=== PATIENT | female | born 1955 | race Caucasian/White ===

== ENCOUNTER 2020-09-14 16:26 | Emergency (ER) | payer MEDICARE, MEDICAID, SELFPAY ==
[2020-09-14] VITALS (28 sets, daily range): BP systolic 115–179; BP diastolic 79–120; PULSE 57–100; RESP 14–27; TEMP 36.3; O2SAT 94–100
--- NOTE | 2020-09-14 16:30 | RT.EKG_ITS ---
APPROVED REPORT Exam: Resting ECG Patient Location: E HR:77 bpm ECG Measurements Heart Rate 77 AXIS MO 163 P 36 QRSd 78 QRS 37 QT 376 T 25 QTc [address] elev anterior, ST dep inferior
--- NOTE | 2020-09-14 16:45 | DI.CT_ITS ---
EXAM: CT THORAX ABDOMEN CTA CLINICAL HISTORY: central cp, hypertension. TECHNIQUE: Imaging Protocol: Axial CT angiography was performed with multi-slice acquisition and m ulti-planar and/or 3D reconstructions. CONTRAST MATERIAL: Intravenous: Omnipaque 350 Contrast volume:structured data in ml Oral: yes / no COMPARISON: No exams were available for comparison FINDINGS: CHEST: Tracheobronchial tree: Patent where visualized. Pulmonary parenchyma: No consolidation or dominant measurable mass. No architectural distortion. Pulmonary Arteries: No evidence of filling defect to suggest pulmonary emboli. Mediastinum and Melissa: No dominant adenopathy or fluid collection. Visualized thyroid: Unremarkable. Pleura: No effusion or pneumothorax. Heart: The heart is not dilated. No coronary artery calcifications are seen. No pericardial effusion. Aorta: Thoracic aorta non-dilated. Atherosclerosis. No evidence of dissection. Soft Tissues: Unremarkable. Bones: Within normal limits for the patient's age. ABDOMEN AND PELVIS: Abdomen: Celiac axis/mesenteric arteries: No evidence of occlusion or significant stenosis. Renal Arteries: No evidence of occlusion or significant stenosis. There is a single renal artery per fusing each kidney. Aorta: No evidence of occlusion or significant stenosis. No aneurysm or dissection. Moderate ather osclerosis. Calcific and noncalcific plaque is identified with portion of mild ulceration of plaque noticed. Pelvis: Iliac Arteries: No evidence of occlusion or significant stenosis. Mild atherosclerosis. ABDOMEN: Liver: There is diffuse decreased attenuation of the liver consistent with fatty infiltration. No me asurable mass. The liver measures 18.6 cm in length. Portal, Superior Mesenteric, and Splenic Veins: Unremarkable. Gallbladder and Biliary Tract: No radiodense calculus or dilation. Pancreas: Normal density, no abnormal calcifications or inflammatory process. Spleen: Normal. Adrenals: No masses seen. Kidneys: Normal size, contour and axis. No radiodense stones or obstructive uropathy. There is a 7.4 cm simple cyst in the superior pole of the left kidney. There are tiny hypodensities seen in both ki dneys. They are too small for further characterization, but likely reflect small cysts. Bowel: No obstruction or bowel wall thickening. The appendix is not visualized on the examination. T here is diverticulosis seen in the descending colon but no evidence of acute diverticulitis. Peritoneal Cavity: No ascites, collection or mesenteric inflammatory response. No free air. Lymph Nodes: Within normal limits. Bones: Within normal limits for the patient's age. Soft Tissues: Small fat containing umbilical hernia. IMPRESSION: 1. No evidence of pulmonary embolism, thoracic aortic dissection or aneurysm. 2. No acute pulmonary process. 3. No acute abdominal process. 4. No evidence of occlusion or significant stenosis. 5. Hepatomegaly and hepatic steatosis. RADIATION DOSE DELIVERED: 708.23mGy.cm Total DLP DATA REPOSITORY: All CT scans at this facility are submitted to the National Radiology Data Registry (NRDR) Dose Index Registry (DIR) with the [employer] (A[employer]). RADIATION OPTIMIZATION: All CT scans at this facility use at least one of these dose optimization te chniques: automated exposure control; mA and/or kV adjustment per patient size (includes targeted exa ms where dose is matched to clinical indication); or iterative reconstruction.
--- NOTE | 2020-09-14 16:45 | DI.CT_ITS ---
EXAM: CT HEAD WO CLINICAL HISTORY: fall, chest pain. TECHNIQUE: Imaging Protocol: Axial computed tomography images with coronal and sagittal reformatted images were created and reviewed COMPARISON: No exams were available for comparison FINDINGS: The examination is limited due to patient motion artifact. Ventricles and Extra axial spaces: Normal in size and morphology for the patient's age. Hemorrhage: None. Cerebral parenchyma: Normal. No acute territorial infarct. Midline shift: None. Brainstem/Cerebellum: Normal. Calvarium: Normal. Visualized Paranasal sinuses/Mastoids: Clear. Soft Tissues: Unremarkable. IMPRESSION: No acute intracranial process. RADIATION DOSE DELIVERED: 710.68mGy.cm Total DLP DATA REPOSITORY: All CT scans at this facility are submitted to the National Radiology Data Registry (NRDR) Dose Index Registry (DIR) with the [employer] (ACR). RADIATION OPTIMIZATION: All CT scans at this facility use at least one of these dose optimization te chniques: automated exposure control; mA and/or kV adjustment per patient size (includes targeted exa ms where dose is matched to clinical indication); or iterative reconstruction.
--- NOTE | 2020-09-14 16:46 | W.ED.GENAD ---
Discharge Plan Disposition Patient Disposition: [facility] Condition: Serious Discharge Details Clinical Impression: Acute coronary syndrome Primary Care Provider: None,None ED Provider: Galindo Gan Home Meds and New Rx's Prescriptions: No Action No Known Home Meds RF: 0 Medical Decision Making 65-year-old female presents with 3 hours of central chest pain that she feels like a burning pressure and radiates to her left arm. Associated with nausea and a few episodes of emesis. She states it began after slipping and falling landing on a sofa. She did not injure herself or have a loss of consciousness. She is a smoker with a positive family history of coronary artery disease. She recently moved to this area from the [facility] [place], [place]. No current active primary care in this area. She arrives to the ER slightly hypertensive with a blood pressure 176/89, interactive and describing 4 out of 10 central chest pressure that radiates to the left arm. Patient placed on a lunchroom monitor, IV access established, she is referred for screening EKG and laboratories. Patient's EKG shows ST depression in the inferior leads and ST elevation in the anterior leads. Does not quite meet criteria for ST elevation ND, but concerning for dynamic EKG changes. Additionally, given the unusual presentation with a partial fall at home, hypertension, I did want to exclude aortic dissection the patient was referred for stat CTA of chest and abdomen. Additionally, she was referred for noncontrast CT scan of the head to rule out intracranial mass or hemorrhage. Patient's laboratories reveal elevated white blood cell count of 15, hematocrit 46, platelets 296. Creatinine is normal at 1.0. Glucose elevated at 373. Troponin is positive at 0.29. CT: Head CT unremarkable, CT chest reveals calcified and noncalcified plaque in descending thoracic aorta and arch of aorta. No aortic dissection seen. There is heavily calcified and noncalcified plaques of the abdominal aorta with mild ulceration of the plaque suspected. Focal infrarenal ectasia measuring up to 2.6 cm with mural thrombus present. Images uploaded to [facility] along with EKGs. Discussed with on-call cardiology, patient excepted to Dr. Swenson service. Does seem to be consistent with primary cardiac event. After our discussion, we will proceed with heparin, 300 mg of Plavix, beta-blockade. We have requested helicopter transfer. Cardiology will consult with vascular surgery regarding the findings of the abdominal aorta. Patients 3rd EKG reveals more prominent ST elevation V1-3. Discussed with [facility] who recommended thrombolysis. I consented the patient at the bedside, and she was administered 30 mg of TNKase prior to departure with [facility]. Lab Data Lab results reviewed: Yes I reviewed the patient's lab results. Labs: Laboratory Results - last 24 hr 09/14/20 09/14/20 09/14/20 16:35 16:35 16:35 WBC 15.80 H RBC 5.29 H Hgb 15.2 Hct 46.5 H MCV 87.9 MCH 28.7 MCHC 32.7 RDW 12.6 Plt Count 296 MPV 12.1 H Immature Gran % 0.6 Neutrophils % 81.3 Lymphocytes % 12.3 Monocytes % 4.1 Eosinophils % 1.1 Basophils % 0.6 Nucleated RBC % 0 Absolute Neutrophils 12.85 H Absolute Lymphocytes 1.94 Absolute Monocytes 0.65 Absolute Eosinophils 0.17 Absolute Basophils 0.09 PT 10.2 INR 1.0 APTT 23.7 Sodium 134 L Potassium 4.0 Chloride 97 L Carbon Dioxide 26.7 Anion Gap 10.3 BUN 16 Creatinine 1.0 Estimated GFR/1.73 m2 55.47 Glucose 373 H Calcium 9.4 Magnesium 1.9 Total Bilirubin 0.4 AST 14 L ALT 26 Alkaline Phosphatase 132 H Troponin I 0.29 H* Total Protein 8.0 Albumin 3.9 HPI General Mode of arrival: ambulatory. Date/Time Provider Initiated Documentation: 09/14/20 16:27. Limitations to Documentation: no limitations. Information obtained by: patient. History of Present Illness 65 year old F presents to the emergency department with the chief complaint of Chest pain, nausea, vomiting, described as moderate, Quality is described as dull and constant, and is localized to the chest. Patient extremity. Patient started experiencing this hour(s) and it has been constant. No relieving factors improve symptom(s), No exacerbating factors reported . Patient notes chest pain and nausea/vomiting; denies syncope. Patient did receive the following treatments prior to arrival, other (500 mg Tylenol) Related Data Home Medications Medication Instructions Recorded Confirmed Unknown [No Known Home Meds] 09/14/20 09/14/20 Allergies Allergy/AdvReac Type Severity Reaction Status Date / Time Penicillins Allergy Anaphylaxis Unverified 09/14/20 16:47 codeine AdvReac Nausea Unverified 09/14/20 16:47 General Stated Complaint: Chest Pain BERNIE: 2 Review of Systems Narrative: Fell in the store. No loss of consciousness. Achy chest pain for 3 hours. Recently has been well. Continues to smoke. Positive family history of coronary disease. [facility] Social History Smoking/Tobacco Use Status: Current every day Tobacco Type: cigarettes Smoking risk assessment performed?: Yes Alcohol Intake: never Drug use: Never Do you feel safe at home: Yes Do you feel safe in your relationship?: Yes Exam Narrative Exam Narrative: GEN: awake, alert, oriented 3. Pleasant, well groomed, interactive. HEAD: Normocephalic, atraumatic ENT: Mucous membranes moist, oropharynx unremarkable, External ear exam unremarkable EYES: PERRL, EOMI NECK: Full ROM, no SAQIB, no menigismus. Nontender. Back is nontender without step-off or deformity. CHEST/RESP: Nontender, clear to auscultation bilateral, no wheeze/rhonchi/rales CARDIOVASCULAR: RRR, no murmur, rub kaia. 2+ Rad pulse bilateral ABDOMEN: Soft, nontender, no mass. +Bowel sounds EXT: Full ROM, no edema, no rash Neuro: Grossly normal neurologic exam, conversant, interactive. Psych: Speech fluent, thoughts congruent, affect normal Course Vital Signs Vital signs: Vital Signs Temperature 36.3 C L 09/14/20 16:40 Pulse 89 09/14/20 16:40 Respiratory Rate 19 09/14/20 16:40 Blood Pressure 176/79 H 09/14/20 16:40 Pulse Oximetry 97 09/14/20 16:40 Temperature 36.3 C L 09/14/20 16:40 Temperature Source Temporal Artery Scan 09/14/20 16:40 Pulse 89 09/14/20 16:40 Respiratory Rate 19 09/14/20 16:40 Blood Pressure 176/79 H 09/14/20 16:40 Blood Pressure Position Supine 09/14/20 16:40 Pulse Oximetry 97 09/14/20 16:40 Oxygen Delivery Method Room Air 09/14/20 16:40 Oxygen Flow Rate 0 09/14/20 16:40 Critical Care Time Critical Care Time Critical Care Time: Yes Total Critical Care Time: 40 Attestation: Review of available records, beds side management, discussion with corporate consultant
[2020-09-14 16:50] LABS: Absolute Eosinophil Count 0.17 10^3/uL (0.0-0.7); Basophils % 0.6; Eosinophils % 1.1; HCT 46.5 % (36.0-46.0); HGB 15.2 g/dL (11.2-15.7); Immature Grans % 0.6; Lymphocytes % 12.3; MCH 28.7 pg (27.0-33.0); MCHC 32.7 % (32.0-36.0); MCV 87.9 fL (80-95); MPV 12.1 fL (8.0-11.0); Monocytes % 4.1; Neutrophils % 81.3; Nucleated RBC 0 %; Platelet Count 296 10^3/uL (130-400); RBC 5.29 10^6/uL (3.93-5.22); RDW 12.6 % (11.7-14.6); RDW-SD 40.3 fL
--- NOTE | 2020-09-14 17:00 | RT.EKG_ITS ---
APPROVED REPORT Exam: Resting ECG Patient Location: E HR:86 bpm ECG Measurements Heart Rate 86 AXIS NH 170 P 29 QRSd 78 QRS 38 QT 377 T -6 QTc [address] elevation V1-3 ST depression inferior
[2020-09-14 17:07] LABS: ALT 26 U/L (14-59); AST 14 U/L (15-37); Absolute Basophil Count 0.09 10^3/uL (0.0-0.2); Absolute Lymphocyte Count 1.94 10^3/uL (1.2-3.4); Absolute Monocyte Count 0.65 10^3/uL (0.1-0.8); Absolute Neutrophil Count 12.85 10^3/uL (1.2-6.7); Albumin 3.9 g/dL (3.4-5.0); Alkaline Phosphatase 132 U/L (46-116); Anion Gap 10.3 mmol/L (3-11); BUN 16 mg/dL (7-18); Bilirubin, Total 0.4 mg/dL (0.2-1.0); CO2 26.7 mmol/L (21.0-32.0); Calcium 9.4 mg/dL (8.5-10.1); Chloride 97 mmol/L (98-107); Estimated GFR 55.47 (mL/min/1.73m2); Glucose 373 mg/dL (74-106); Magnesium 1.9 mg/dL (1.8-2.4); Sodium 134 mmol/L (136-145)
[2020-09-14 17:10] LABS: Troponin I 0.29 ng/mL (<0.06)
[2020-09-14 17:11] LABS: PTT Activated 23.7 sec (21.0-27.5); Prothrombin Time 10.2 sec (9.3-11.0)
[2020-09-14] MEDS: Omnipaque 350 MG/ML 100 ML BTL IJ (17:11)
[2020-09-14] MEDS: Normal Saline - Diluent 50 ML VIAL IV (17:12)
[2020-09-14] MEDS: Normal Saline Flush 10 ML SYR IVP (17:12)
--- NOTE | 2020-09-14 17:18 | DI.VRAD_ITS ---
PROCEDURE INFORMATION: Exam: CT Head Without Contrast Exam date and time: 09/14/2020 4:47 PM Age: 65 years old Clinical indication: Injury or trauma; Fall; Blunt trauma (contusions or hematomas) TECHNIQUE: Imaging protocol: Computed tomography of the head without contrast. Total images: 958 COMPARISON: No relevant prior studies available. FINDINGS: Brain: No intra or extra axial bleed. No edema or mass effect. The central cagle structures and cortical ribbon are maintained. Cerebral ventricles: No hydrocephalus. Basal cisterns are patent. Bones/joints: No significant bony abnormality. No fracture. Paranasal sinuses: No mucosal thickening or fluid levels. Mastoid air cells: Mastoid air cells are clear. Orbital cavity: Unremarkable. Soft tissues: Unremarkable. IMPRESSION: No acute intracranial abnormality. Dictated and Authenticated by: Galindo Roth MD. Ordering:RHEA Medley MD
[2020-09-14] MEDS: Aspirin 325 MG TAB PO (17:25)
--- NOTE | 2020-09-14 17:30 | DI.VRAD_ITS ---
PROCEDURE INFORMATION: Exam: CTA Chest With Contrast Exam date and time: 09/14/2020 5:04 PM Age: 65 years old Clinical indication: Other: Hyporstensive, chest pain; Hypotension TECHNIQUE: Imaging protocol: Computed tomographic angiography of the chest with contrast. 3D rendering (Not supervised by radiologist): MIP and/or 3D reconstructed images were created by the technologist. Contrast material: OMNIPAQUE 350; Contrast volume: 100 ml; Contrast route: INTRAVENOUS (IV); COMPARISON: No relevant prior studies available. FINDINGS: Pulmonary arteries: Normal. No pulmonary emboli. Aorta: No aortic aneurysm. No aortic dissection. There are calcified and noncalcified plaque in the descending thoracic aorta and arch of aorta. Lungs: Unremarkable. No consolidation. No masses. Pleural spaces: Unremarkable. No pneumothorax. No pleural effusion. Heart: Heart is mildly enlarged. Lymph nodes: There are mildly prominent lymph nodes in the mediastinum, probably reactive. Bones/joints: Unremarkable. No acute fracture. Soft tissues: Unremarkable. IMPRESSION: 1. No acute pulmonary process. 2. No pulmonary embolism or dissection. PROCEDURE INFORMATION: Exam: CT Angiography Abdomen With Contrast Exam date and time: 09/14/2020 5:04 PM Age: 65 years old Clinical indication: Other: Hyporstensive, chest pain; Hypotension TECHNIQUE: Imaging protocol: Computed tomographic angiography images of the abdomen with intravenous contrast material. 3D rendering (Not supervised by radiologist): MIP and/or 3D reconstructed images were created by the technologist. Contrast material: OMNIPAQUE 350; Contrast volume: 100 ml; Contrast route: INTRAVENOUS (IV); COMPARISON: No relevant prior studies available. FINDINGS: Mediastinum: There is small hiatal hernia. Aorta: There is a calcified and noncalcified plaque in the thoracic and abdominal aorta. There is a infrarenal abdominal aortic ectasia. Measuring up to 2.5 cm and has mural thrombus and probable ulceration of the plaque. Celiac trunk and mesenteric arteries: No occlusion or significant stenosis. Renal arteries: No occlusion or significant stenosis. Liver: Liver is enlarged with hepatic steatosis. Gallbladder and bile ducts: Normal. No calcified stones. No ductal dilation. Pancreas: Normal. No ductal dilation. Spleen: Normal. No splenomegaly. Adrenals: Normal. No mass. Kidneys and ureters: There are cysts in the bilateral kidneys, largest in the left renal upper pole. Stomach and bowel: Unremarkable. No obstruction. No mucosal thickening. Lymph nodes: Unremarkable. No enlarged lymph nodes. Intraperitoneal space: Unremarkable. No free air. No significant fluid collection. Bones/joints: There are degenerative changes in the thoracic and lumbar spine. There is no focal lytic or blastic lesion. Soft tissues: Unremarkable. IMPRESSION: 1. No acute intra-abdominal abnormality. 2. Hepatic steatosis. 3. Heavy calcified and noncalcified plaques of the abdominal aorta with mild ulceration of the plaque suspected. There is a focal infrarenal ectasia measuring up to 2.6 cm with a mural thrombus. No occlusion or significant stenosis of the visceral vessel are identified. Dictated and Authenticated by: Jaxon Rosario MD. Ordering:RHEA Medley MD
[2020-09-14] MEDS: Clopidogrel 300 MG TAB PO (17:39)
[2020-09-14] MEDS: Metoprolol 5 MG/5 ML VIAL IVP (17:42)
--- NOTE | 2020-09-14 18:00 | RT.EKG_ITS ---
APPROVED REPORT Exam: Resting ECG Patient Location: E HR:71 bpm ECG Measurements Heart Rate 71 AXIS IA 185 P 23 QRSd 74 QRS 29 QT 397 T 28 QTc 433 Conclusion Sinus rhythm.. Anteroseptal infarct, acute.
[2020-09-14] MEDS: Ondansetron 4 MG/2 ML VIAL IVP (18:27)
[2020-09-14] MEDS: Tenecteplase 50 MG KIT 30 MG IVP (18:30)
[2020-09-14 19:47] LABS: COVID-19 PCR Negative (Negative)
== END 2020-09-14 18:45 | disposition short-term general hospital (02) ==
PROVIDERS: Emergency Provider Emergency Medicine
DX: I24.8 Other forms of acute ischemic heart disease (principal); R11.2 Nausea with vomiting, unspecified; R94.31 Abnormal electrocardiogram [ECG] [EKG]; W01.190A Fall on same level from slipping, tripping and stumbling with subsequent striking against furniture, initial encounter; Z03.818 Encounter for observation for suspected exposure to other biological agents ruled out
CPT/HCPCS: 36415; 71275; 74175; 80053; 87635; 93005; 96365; 96368; 96375; 96376; 99291; 70450; 83735; 84484; 85025; 85610; 85730; 93010; J2405; J3101; J3490

== ENCOUNTER 2020-10-14 07:35 | Emergency (ER) | payer MEDICARE, MEDICAID, SELFPAY ==
[2020-10-14 07:38] VITALS: BP 136/72; PULSE 64; TEMP 36.1; O2SAT 100
--- NOTE | 2020-10-14 08:03 | ED.GENADUL_ITS ---
Discharge Plan Disposition Patient Disposition: HOME Condition: Stable Discharge Details Clinical Impression: Tick bite of back Primary Care Provider: Anisa Kc ED Provider: Greg Rader Home Meds and New Rx's Prescriptions: Continued (DME) pen needle, diabetic [Comfort EZ Pen [place]] 31 gauge x 5/16 needle See Rx Instructions .ROUTE .MEDSUPPLY Qty: 1200 RF: 0 atorvastatin 80 mg tablet 80 mg PO QHS RF: 0 clopidogrel 75 mg tablet 75 mg PO DAILY RF: 0 Lantus Solostar U-100 Insulin 100 unit/mL (3 mL) insulin pen 15 unit subcut QHS RF: 0 lisinopril 5 mg tablet 5 mg PO DAILY RF: 0 metformin 500 mg tablet extended release 24hr 500 mg PO BID RF: 0 metoprolol succinate 50 mg tablet extended release 24 hr 50 mg PO DAILY RF: 0 nitroglycerin 0.4 mg tablet, sublingual 0.4 mg sublingual Q5-15M PRNRF: 0 (DME) OneTouch Verio test strips Strip See Rx Instructions .ROUTE .MEDSUPPLY Qty: 10 RF: 0 (DME) lancets [OneTouch Delica Lancets] 30 gauge misc See Rx Instructions .ROUTE .MEDSUPPLY Qty: 100 RF: 0 aspirin [Adult Aspirin Regimen] 81 mg tablet,delayed release (DR/EC) 81 mg PO DAILY Qty: 90 RF: 3 Discharge Instructions Instructions: Tick Bite (ED) Additional Instructions: Please contact your primary care physician to arrange follow-up. Return to the ER immediately for any worsening or new concerning symptoms. Referrals: Anisa Kc DO [Primary Care Provider] - Medical Decision Making 65-year-old female with deer tick biting mid upper back. Unclear as to how long the tick is been biting. She notes she is outside regularly and daily. No signs or symptoms of Lyme disease. Tick was removed without complication by nursing. Plan to treat prophylaxis with doxycycline. I educated the patient on tick prevention strategies. HPI General Mode of arrival: ambulatory . Date/Time Provider Initiated Documentation: 10/14/20 07:59 . Limitations to Documentation: no limitations . Information obtained by: patient . History of Present Illness 65 year old F presents to the emergency department with the chief complaint of tick bite, described as moderate, Quality is described as other (itching), and is localized to the back. Patient started experiencing this unknown and it has been constant. No relieving factors improve symptom(s), No exacerbating factors reported . Patient notes no other symptoms.. Patient did receive the following treatments prior to arrival, none Related Data Home Medications Medication Instructions Recorded Confirmed atorvastatin 80 mg tablet 80 mg PO QHS 09/23/20 10/14/20 blood sugar diagnostic #10 ea 09/23/20 clopidogrel 75 mg tablet 75 mg PO DAILY 09/23/20 10/14/20 insulin glargine 100 unit/mL (3 15 unit SUBCUT QHS 09/23/20 10/14/20 mL) subcutaneous pen lancets 30 gauge #100 ea 09/23/20 lisinopril 5 mg tablet 5 mg PO DAILY 09/23/20 10/14/20 metformin 500 mg tablet,extended 500 mg PO BID 09/23/20 10/14/20 release 24hr metoprolol succinate 50 mg 50 mg PO DAILY 09/23/20 10/14/20 tablet,extended release 24 hr nitroglycerin 0.4 mg sublingual 0.4 mg SUBLINGUAL Q5-15M PRN 09/23/20 10/14/20 tablet pen needle, diabetic 31 gauge x #1200 ea 09/25/20 5/16 aspirin 81 mg tablet,delayed 81 mg PO DAILY #90 tab 10/10/20 10/14/20 release Previous Rx's Medication Instructions Recorded aspirin 81 mg tablet,delayed 81 mg PO DAILY #90 tab 10/10/20 release Allergies Allergy/AdvReac Type Severity Reaction Status Date / Time Penicillins Allergy Anaphylaxis Unverified 10/14/20 07:42 codeine AdvReac Nausea,vomi Unverified 10/14/20 07:42 ting General Stated Complaint: RashLesion BERNIE: 5 Review of Systems Constitutional Constitutional: Denies body ache(s), Denies fever(s) and Denies weakness Musculoskeletal Musculoskeletal: Denies tingling Integumentary/Breasts Skin/Breast: Reports as per HPI Neurologic Neurologic: Denies localized weakness, Denies sensory deficit, Denies tingling and Denies weakness [facility] Surgical History S/P cardiac cath (09/14/20) [facility] [place] to return for re-vascularization in 3 mos Family History Father Colon cancer Heart disease Brother Cancer stomach CA Mother Heart disease Diabetes Brother , age 63 Lung cancer Social History Smoking/Tobacco Use Status: Former Tobacco Use Quit Date: 09/14/20 Tobacco: How many years used: 51 Smoking risk assessment performed?: Yes Alcohol Intake: never Drug use: Never Substance use type: does not use Do you feel safe at home: Yes Do you feel safe in your relationship?: Yes Exam Const General: cooperative and no acute distress HENMT Mouth: moist mucous membranes Eyes Conjunctivae: normal conjunctivae Sclera: normal sclerae Cardio Rate: regular rate and not tachycardic Skin Other: deer tick biting mid upper back with quarter sized localized mild red rash Neuro General: patient alert, patient awake, patient oriented x3 and tone normal Course Vital Signs Vital signs: Vital Signs Temperature 36.1 C L 10/14/20 07:38 Pulse 64 10/14/20 07:38 Blood Pressure 136/72 10/14/20 07:38 Pulse Oximetry 100 10/14/20 07:38 Temperature 36.1 C L 10/14/20 07:38 Temperature Source Temporal Artery Scan 10/14/20 07:38 Pulse 64 10/14/20 07:38 Respiratory Effort Non-Labored 10/14/20 07:41 Blood Pressure 136/72 10/14/20 07:38 Blood Pressure Position Sitting 10/14/20 07:38 Pulse Oximetry 100 10/14/20 07:38 Pain Level 0 10/14/20 07:38
[2020-10-14] MEDS: Doxycycline Hyclate 100 MG CAP 200 MG PO (08:14)
== END 2020-10-14 08:18 | disposition home or self-care (01) ==
PROVIDERS: Emergency Provider Student in an Organized Health Care Education/Training Program; PCP Student in an Organized Health Care Education/Training Program
DX: R21 Rash and other nonspecific skin eruption (principal); S20.469A Insect bite (nonvenomous) of unspecified back wall of thorax, initial encounter; W57.XXXA Bitten or stung by nonvenomous insect and other nonvenomous arthropods, initial encounter
CPT/HCPCS: 99283

== ENCOUNTER 2021-05-05 12:44 | Outpatient (REF) | payer MEDICARE, MEDICAID, SELFPAY | END 2021-05-05 12:45 | disposition home or self-care (01) | LOC: LBN 12:44 | PROVIDERS: PCP Student in an Organized Health Care Education/Training Program; Referring Provider Student in an Organized Health Care Education/Training Program; Visit Provider Student in an Organized Health Care Education/Training Program | DX: S81.802A Unspecified open wound, left lower leg, initial encounter (principal); X58.XXXA Exposure to other specified factors, initial encounter | CPT/HCPCS: 87070; 87205 ==

== ENCOUNTER 2021-05-06 13:00 | Outpatient (RCR) | payer MEDICARE, MEDICAID, SELFPAY | END 2021-05-12 23:59 | disposition home or self-care (01) | LOC: CR 13:00 | PROVIDERS: PCP Student in an Organized Health Care Education/Training Program; Visit Provider Family Medicine | DX: I25.10 Atherosclerotic heart disease of native coronary artery without angina pectoris (principal); I25.2 Old myocardial infarction; Z95.1 Presence of aortocoronary bypass graft; Z95.5 Presence of coronary angioplasty implant and graft; Z51.89 Encounter for other specified aftercare | CPT/HCPCS: S9472 ==

== ENCOUNTER 2021-05-18 10:12 | Outpatient (CLI) | payer MEDICARE, MEDICAID, SELFPAY ==
--- NOTE | 2021-05-18 10:00 | RT.EKG_ITS ---
APPROVED REPORT Exam: Resting ECG Reason for Exam: mi Patient Location: O HR:52 bpm ECG Measurements Heart Rate 52 AXIS VT 185 P 6 QRSd 77 QRS -1 QT 429 T -3 QTc 399 Conclusion Sinus rhythm...normal P axis, V-rate 50- 99 Low voltage, precordial leads...precordial leads <1.0mV Anteroseptal infarct, old...Q >40mS, V1-V2 Lead(s) aVF were not used for morphology analysis
== END 2021-05-18 10:13 | disposition home or self-care (01) ==
LOC: DI.CARD 10:12
PROVIDERS: PCP Student in an Organized Health Care Education/Training Program; Visit Provider Internal Medicine Cardiovascular Disease
DX: I21.3 ST elevation (STEMI) myocardial infarction of unspecified site (principal); I25.10 Atherosclerotic heart disease of native coronary artery without angina pectoris
CPT/HCPCS: 93010

== ENCOUNTER → 2021-05-18 13:11 | Outpatient (BNVA) | payer MEDICARE, MEDICAID, SELFPAY | PROVIDERS: PCP Student in an Organized Health Care Education/Training Program; Referring Provider Student in an Organized Health Care Education/Training Program; Visit Provider Internal Medicine Cardiovascular Disease | DX: I25.10 Atherosclerotic heart disease of native coronary artery without angina pectoris (principal); I25.5 Ischemic cardiomyopathy; Z95.1 Presence of aortocoronary bypass graft; E11.9 Type 2 diabetes mellitus without complications; Z79.4 Long term (current) use of insulin | CPT/HCPCS: 93005; 99204; 99214 ==

== ENCOUNTER → 2021-05-21 14:15 | Outpatient (BNVA) | payer MEDICARE, MEDICAID, SELFPAY | PROVIDERS: PCP Student in an Organized Health Care Education/Training Program; Referring Provider Student in an Organized Health Care Education/Training Program; Visit Provider Surgery | DX: S81.802A Unspecified open wound, left lower leg, initial encounter (principal); X58.XXXA Exposure to other specified factors, initial encounter; I25.10 Atherosclerotic heart disease of native coronary artery without angina pectoris; I73.9 Peripheral vascular disease, unspecified; J44.9 Chronic obstructive pulmonary disease, unspecified; Z87.891 Personal history of nicotine dependence; E11.69 Type 2 diabetes mellitus with other specified complication; Z95.1 Presence of aortocoronary bypass graft | CPT/HCPCS: 99203; 99214 ==

== ENCOUNTER 2021-06-10 13:00 | Outpatient (RCR) | payer MEDICARE, MEDICAID, SELFPAY | END 2021-06-12 23:59 | disposition home or self-care (01) | LOC: CR 13:00 | PROVIDERS: PCP Student in an Organized Health Care Education/Training Program; Visit Provider Family Medicine | DX: Z51.89 Encounter for other specified aftercare (principal); I25.2 Old myocardial infarction; Z95.1 Presence of aortocoronary bypass graft; Z95.5 Presence of coronary angioplasty implant and graft | CPT/HCPCS: S9472 ==

== ENCOUNTER → 2021-06-11 11:19 | Outpatient (BNVA) | payer MEDICARE, MEDICAID, SELFPAY | PROVIDERS: PCP Student in an Organized Health Care Education/Training Program; Referring Provider Student in an Organized Health Care Education/Training Program; Visit Provider Physical Therapy Assistant | DX: Z48.817 Encounter for surgical aftercare following surgery on the skin and subcutaneous tissue (principal) ==

== ENCOUNTER 2021-06-16 00:55 | Outpatient (CLI) | payer MEDICARE, MEDICAID, SELFPAY ==
--- NOTE | 2021-06-16 14:02 | DI.US_ITS ---
APPROVED REPORT EXAM: Comprehensive 2D, Doppler, and color-flow Echocardiogram Patient Location: Out-Patient Boiler Maker: Dana Hammer RDCS (AE) Indications: CAD, STEMI, CABG Other Information Study Quality: Adequate Conclusion Normal left ventricular wall thickness and chamber size. Estimated ejection fraction is 55%. Wall m otion abnormalities involving the anterior, anteroapical, anteroseptal segments are noted Normal right ventricular size and systolic function Both atria are normal in size There is no structural valvular disease Moderate mitral regurgitation Mildly dilated ascending aorta Wall motion Left Ventricle The left ventricle is normal size. The left ventricular systolic function is normal. The left ventric ular ejection fraction is within the normal range. There is normal left ventricular wall thickness. R egional wall motion abnormalities are noted. Anterior, septal, anteroapical There is no ventricular s eptal defect visualized. LVEF is 55%. Right Ventricle The right ventricle is normal size. The right ventricular systolic function is normal. The RVSP is 26 .0mmHg. Atria The left atrium size is normal. The right atrium size is normal. The interatrial septum is intact wit h no evidence for an atrial septal defect. Aortic Valve The aortic valve is normal in structure. Aortic valve is trileaflet. There is no aortic valvular sten osis. No aortic regurgitation is present. Mitral Valve The mitral valve is normal in structure. No evidence of mitral valve stenosis. Moderate mitral regurg itation. Tricuspid Valve The tricuspid valve is normal in structure. There is no tricuspid valve stenosis. Trace tricuspid reg urgitation. Pulmonic Valve The pulmonary valve is normal in structure. There is no pulmonic valvular stenosis. Trace pulmonic re gurgitation. Great Vessels The aortic root is normal in size. The ascending aorta is mildly dilated. IVC is normal in size and c ollapses >50% with inspiration. Pericardium There is no pericardial effusion. 2D Dimensions IVSD d PLAX 0.91 cm F: 0.6-1.0 LV Vol A2C d MOD 90.0 mL LVPW d PLAX 0.91 cm F: 0.6 - 1.0 LV Vol A4C d MOD 101.3 mL LVID d PLAX 4.34 cm F: 3.8 - 5.2 LA vol/ BSA A2C s A-L 29.7 mL/m2 LVDs 3.10 cm F: 2.2 - 3.5 LA vol/ BSA A4C s A-L 31.0 mL/m2 Ao Root d 2.15 cm F: 2.7 - 3.3 LA Vol/ BSA Biplane s A-L 30.6 mL/m2 RA Area A4C 14.49 cm2 LA Area A4C s MOD 18.23 cm2 RA Vol/ BSA A4C s A-L 21.3 mL/m2 LA Area A2C s MOD 18.00 cm2 Ao Asc Diam d 3.36 cm F: 2.3 - 3.1 LV EF A4C MOD 60.4 % LV EF Teichholz 54.3 % LV EF A2C MOD 60.1 % LVEF (Belle's) 61.15 % F: 54 - 74 LV EF Biplane MOD 61.1 % LV Volume 78.95 mL F: 46 - 106 SV 60.34 mL LV Volume Index 47.56 mL/m2 F: 29 - 61 SV Index 36.20 mL/m2 LV Vol Biplane MOD 98.7 mL FS 27.90 % LV Diastology E/A Ratio 1.2 MV E Vmax 1.21 (0.4-1.3 m/s) MV A Vmax 1.00 (0.4-1.3 m/s) MV E/A Ratio 1.17 Aortic Valve LVOT Area 3.04 cm2 AoV Area Vmax 1.66 cm2 LVOT Vmax 1.09 m/s AoV Area/ BSA (Vmax) 1.00 cm2/m2 LVOT Mean Oral. 0.72 m/s ALDO Mean Oral. 1.53 cm2 LVOT Peak Grad 4.8 mmHg ALDO Mean Oral. Index 0.92 cm2/m2 LVOT Mean Grad 2.4 mmHg LVOT VTI 0.273 m LVOT Diam s 1.95 cm AoV Vmax 2.00 m/s Velocity Ratio 0.54 AoV Mean Oral. 1.43 m/s AoV Peak Grad 16.0 mmHg LVOT SV 83.20 mL AoV Mean Grad 9.1 mmHg AoV VTI 0.466 m AoV Area VTI 1.78 cm2 AoV Area/ BSA (VTI) 1.07 cm/m2 Mitral Valve MV DT 259 (160-240 msec) MR Vmax 5.55 m/s MV PHT 75 msec MR VTI 1.966 m MV Area PHT 2.93 cm2 MR Peak Grad 123.2 mmHg MV VTI 0.656 m MR Mean Grad 75.7 mmHg MV VTI Annulus 0.706 m MR PISA Radius 0.77 cm MV Area VTI 1.37 (4.0-6.0 cm2) MR EROA 0.24 cm2 MR Aliasing Velocity 0.35 m/s MR PISA 3.73 cm2 Pulmonary Valve PV Vmax 1.16 (0.5-1.5 m/s) RVOT Peak Gr. 1.92 mmHg PV Peak Grad 5.4 mmHg RVOT Mean Gr. 0.90 mmHg PV Mean Grad 3.0 mmHg RVOT VTI 0.177 m PV VTI 0.253 m RVOT Vmax 0.69 m/s Tricuspid Valve TR Peak Grad 22.9 mmHg TR Vmax 2.40 m/s RA Pressure 3.00 mmHg RVSP (TR) 26.0 mmHg
== END 2021-06-16 01:15 ==
PROVIDERS: PCP Student in an Organized Health Care Education/Training Program; Visit Provider Internal Medicine Cardiovascular Disease
DX: I25.2 Old myocardial infarction (principal); I25.10 Atherosclerotic heart disease of native coronary artery without angina pectoris; Z95.1 Presence of aortocoronary bypass graft; I34.0 Nonrheumatic mitral (valve) insufficiency; I77.810 Thoracic aortic ectasia
CPT/HCPCS: 93306

== ENCOUNTER 2021-09-22 03:23 | Outpatient (CLI) | payer MEDICARE, MEDICAID, SELFPAY ==
[2021-09-22 10:41] LABS: HGB 11.7 g/dL (11.2-15.7); MCH 27.2 pg (27.0-33.0); MCHC 30.8 % (32.0-36.0); MCV 88.4 fL (80-95); MPV 12.4 fL (8.0-11.0); Platelet Count 293 10^3/uL (130-400); RDW 14.6 % (11.7-14.6); RDW-SD 47.1 fL; WBC 11.48 10^3/uL (4.4-10.8)
[2021-09-22 11:30] LABS: ALT 17 U/L (14-59); AST 13 U/L (15-37); Albumin 3.9 g/dL (3.4-5.0); Alkaline Phosphatase 125 U/L (46-116); Anion Gap 7.1 mmol/L (3-11); BUN 16 mg/dL (7-18); Bilirubin, Total 0.5 mg/dL (0.2-1.0); CO2 29.9 mmol/L (21.0-32.0); CREATININE 0.8 mg/dL (0.55-1.02); Calcium 9.1 mg/dL (8.5-10.1); Calculated LDL 91 mg/dL (<100); Chloride 104 mmol/L (98-107); Cholesterol 166 mg/dL (<200); Glucose 85 mg/dL (74-106); HDL Cholesterol 46 mg/dL (40-60); Magnesium 2.1 mg/dL (1.8-2.4); Potassium 4.4 mmol/L (3.5-5.1); Sodium 141 mmol/L (136-145); Total Protein 7.1 g/dL (6.4-8.2); Triglyceride 147 mg/dL (<150)
[2021-09-22 11:41] LABS: Bilirubin, Direct 0.1 mg/dL (0.0-0.2)
== END 2021-09-22 03:24 | disposition home or self-care (01) ==
LOC: LBO 03:23
PROVIDERS: PCP Student in an Organized Health Care Education/Training Program; Visit Provider Student in an Organized Health Care Education/Training Program
DX: R74.01 Elevation of levels of liver transaminase levels (principal); E11.9 Type 2 diabetes mellitus without complications; I24.9 Acute ischemic heart disease, unspecified; Z13.220 Encounter for screening for lipoid disorders; I21.3 ST elevation (STEMI) myocardial infarction of unspecified site; I70.0 Atherosclerosis of aorta; J44.9 Chronic obstructive pulmonary disease, unspecified; E86.0 Dehydration; R79.89 Other specified abnormal findings of blood chemistry
CPT/HCPCS: 36415; 80048; 80061; 80076; 85027; 83735

== ENCOUNTER 2021-11-06 13:00 | Outpatient (RCR) | payer MEDICARE, MEDICAID, SELFPAY | END 2021-11-10 23:59 | disposition home or self-care (01) | LOC: CR 13:00 | PROVIDERS: PCP Student in an Organized Health Care Education/Training Program; Visit Provider Internal Medicine Cardiovascular Disease | DX: Z51.89 Encounter for other specified aftercare (principal); I25.2 Old myocardial infarction; Z95.5 Presence of coronary angioplasty implant and graft; Z95.1 Presence of aortocoronary bypass graft | CPT/HCPCS: S9472 ==

== ENCOUNTER 2021-11-13 12:47 | Emergency (ER) | payer MEDICARE, MEDICAID, SELFPAY ==
[2021-11-13 13:13] VITALS: BP 135/57; PULSE 62; RESP 18; TEMP 36.6; O2SAT 98
--- NOTE | 2021-11-13 13:22 | ED.GENADUL_ITS ---
Discharge Plan Disposition Patient Disposition: HOME Condition: Stable Discharge Details Clinical Impression: Rash Primary Care Provider: Anisa Kc ED Provider: Ulises Osorio Home Meds and New Rx's Prescriptions: New prednisone 20 mg tablet 60 mg PO DAILY 4 Days Qty: 12 0RF Continued acetaminophen 500 mg tablet 500 mg PO Q6H PRN (Reason: pain, moderate) Qty: 120 1RF Rx Instructions: Take 1-2 PRN HIP PAIN (DME) Curad Xeroform Petrolatm Dress 1 X 8 bandage See Rx Instructions .ROUTE .MEDSUPPLY Qty: 50 0RF Rx Instructions: As directed albuterol sulfate [ProAir HFA] 90 mcg/actuation HFA aerosol inhaler 2 puff inhalation Q6H PRN (Reason: shortness of breath or wheezing) Qty: 8.5 1RF Rx Instructions: Substitutions or generic OK; dispense as best filled per insurance... metformin 500 mg tablet extended release 24hr 500 mg PO BID Qty: 180 3RF atorvastatin 80 mg tablet 80 mg PO QHS Qty: 90 3RF clopidogrel 75 mg tablet 75 mg PO DAILY Qty: 90 3RF Farxiga 5 mg tablet 5 mg PO DAILY Qty: 90 1RF Rx Instructions: Continue for DM Lantus Solostar U-100 Insulin 100 unit/mL (3 mL) insulin pen 15 unit subcut QHS Qty: 15 3RF lisinopril 5 mg tablet 5 mg PO DAILY Qty: 90 3RF (DME) pen needle, diabetic [Comfort EZ [place]] 31 gauge x 5/16 needle See Rx Instructions .ROUTE .MEDSUPPLY Qty: 1200 3RF Rx Instructions: one nightly, any insurance sales associate is fine E11.9 to administer Lantus nitroglycerin 0.4 mg tablet, sublingual 0.4 mg sublingual Q5-15M PRN (Reason: chest pain) Qty: 20 1RF Rx Instructions: do not exceed 3 doses per episode metoprolol succinate 50 mg tablet extended release 24 hr 50 mg PO DAILY Qty: 90 3RF Rx Instructions: Monitor for low pulse! (DME) Skintegrity Hydrogel Gel See Rx Instructions .ROUTE .MEDSUPPLY Qty: 1008 0RF Rx Instructions: apply to saffected area after shower. cover w/ dressing aspirin [Adult Aspirin Regimen] 81 mg tablet,delayed release (DR/EC) 81 mg PO DAILY Qty: 90 3RF (DME) lancets [OneTouch Delica Lancets] 30 gauge misc See Rx Instructions .ROUTE .MEDSUPPLY Qty: 300 3RF Rx Instructions: tid for DM2, E11.9, testing to keep A1C < 7 (DME) Solosite Wound Gel Gel See Rx Instructions .ROUTE .MEDSUPPLY Qty: 1008 0RF Rx Instructions: apply to wound once a day (DME) OneTouch Verio test strips Strip See Rx Instructions .ROUTE .MEDSUPPLY Qty: 150 3RF Rx Instructions: 5/day for DM 2, per [facility] Electrical Assembly Supervisor. Discharge Instructions Additional Instructions: Make sure to thoroughly wash all bedding If symptoms are not improving by next week follow up with your primary care provider if you feel more ill, have severe worsening pain, or fevers return to the emergency department Medical Decision Making 66 yo female comes in with itching lesions on her arms and thighs for 3 days. She denies any known bug bites, denies fevers, chills or severe pain. SHe has numerous <1cm mildly erythematous round lesions on arms and upper thighs with some of them having breaks in the skin in the middle appearing to be bug bites. No lesions on the hands and no burrows so doubt scabies. Her lesions seem like bed bugs. She appears well and has no symptoms to suggest underlying infectious etiology. Will provide short course of steroids for symptom relief and also advised to try benadryl. Advised to f/u with pcp if not improving and return precautions given Differential Diagnosis Differential Diagnosis: bed bugs, insect bites HPI General Mode of arrival: ambulatory . Date/Time Provider Initiated Documentation: 11/13/21 12:54 . Limitations to Documentation: no limitations . Information obtained by: patient . History of Present Illness 66 year old F pr esents to the emergency department with the chief complaint of rash/lesions, described as moderate, Patient started experiencing this day(s) (3) and it has been constant. No relieving factors improve symptom(s), No exacerbating factors reported . Patient notes no other symptoms.. Patient did receive the following treatments prior to arrival, none Related Data Home Medications Medication Instructions Recorded Confirmed aspirin 81 mg tablet,delayed 81 mg PO DAILY #90 tabs 11/03/21 12/30/21 release (Adult Aspirin Regimen) albuterol sulfate 90 mcg/actuation 2 puff inhalation Q6H PRN 05/05/21 06/11/21 aerosol inhaler (ProAir HFA) shortness of breath or wheezing #8.5 grams atorvastatin 80 mg tablet 80 mg PO QHS #90 tabs 05/05/21 06/11/21 bismuth tribrom-petrolatum,wh 1 X #50 ea 05/05/21 06/11/21 8 bandage (Curad Xeroform Petrolatum Dressing) clopidogrel 75 mg tablet 75 mg PO DAILY #90 tabs 05/05/21 06/11/21 dapagliflozin 5 mg tablet (Farxiga) 5 mg PO DAILY #90 tabs 05/05/21 06/11/21 insulin glargine 100 unit/mL (3 15 unit (0.15 mL) subcut QHS to 05/05/21 06/11/21 mL) subcutaneous pen (Lantus maintain A1c < 6.5, DM, E11.9 #15 Solostar U-100 Insulin) mL lisinopril 5 mg tablet 5 mg PO DAILY #90 tabs 05/05/21 06/11/21 metformin 500 mg tablet,extended 500 mg PO BID #180 tabs 05/05/21 06/11/21 release 24hr metoprolol succinate 50 mg 50 mg PO DAILY #90 tabs 05/05/21 06/11/21 tablet,extended release 24 hr nitroglycerin 0.4 mg sublingual 0.4 mg sublingual Q5-15M PRN chest 05/05/21 06/11/21 tablet pain #20 tabs pen needle, diabetic 31 gauge x #1,200 ea 05/05/21 06/11/21 5/16 (Comfort EZ [place]) lancets 30 gauge (OneTouch Delica #300 ea 05/08/21 06/11/21 Lancets) gel dressing (Skintegrity Hydrogel #1,008 grams 05/21/21 06/11/21 topical) gel dressing (Solosite Wound Gel #1,008 grams 05/25/21 06/11/21 topical) acetaminophen 500 mg tablet 500 mg PO Q6H PRN pain, moderate 09/15/21 09/15/21 #120 tabs blood sugar diagnostic (OneTouch #150 ea 09/16/21 Verio test strips) prednisone 20 mg tablet 60 mg PO DAILY 4 days #12 tabs 11/13/21 Previous Rx's Medication Instructions Recorded aspirin 81 mg tablet,delayed 81 mg PO DAILY #90 tabs 04/15/21 release (Adult Aspirin Regimen) albuterol sulfate 90 mcg/actuation 2 puff inhalation Q6H PRN 05/05/21 aerosol inhaler (ProAir HFA) shortness of breath or wheezing #8.5 grams atorvastatin 80 mg tablet 80 mg PO QHS #90 tabs 05/05/21 bismuth tribrom-petrolatum,wh 1 X #50 ea 05/05/21 8 bandage (Curad Xeroform Petrolatum Dressing) clopidogrel 75 mg tablet 75 mg PO DAILY #90 tabs 05/05/21 dapagliflozin 5 mg tablet (Farxiga) 5 mg PO DAILY #90 tabs 05/05/21 insulin glargine 100 unit/mL (3 15 unit (0.15 mL) subcut QHS to 05/05/21 mL) subcutaneous pen (Lantus maintain A1c < 6.5, DM, E11.9 #15 Solostar U-100 Insulin) mL lisinopril 5 mg tablet 5 mg PO DAILY #90 tabs 05/05/21 metformin 500 mg tablet,extended 500 mg PO BID #180 tabs 05/05/21 release 24hr metoprolol succinate 50 mg 50 mg PO DAILY #90 tabs 05/05/21 tablet,extended release 24 hr nitroglycerin 0.4 mg sublingual 0.4 mg sublingual Q5-15M PRN chest 05/05/21 tablet pain #20 tabs pen needle, diabetic 31 gauge x #1,200 ea 05/05/21 5/16 (Comfort EZ [place]) lancets 30 gauge (OneTouch Delica #300 ea 05/08/21 Lancets) gel dressing (Skintegrity Hydrogel #1,008 grams 05/21/21 topical) gel dressing (Solosite Wound Gel #1,008 grams 05/25/21 topical) acetaminophen 500 mg tablet 500 mg PO Q6H PRN pain, moderate 09/15/21 #120 tabs blood sugar diagnostic (OneTouch #150 ea 09/16/21 Verio test strips) prednisone 20 mg tablet 60 mg PO DAILY 4 days #12 tabs 11/13/21 Allergies Allergy/AdvReac Type Severity Reaction Status Date / Time Penicillins Allergy Anaphylaxis Verified 09/15/21 11:18 codeine AdvReac Nausea,vomi Verified 09/15/21 11:18 ting General Stated Complaint: RashLesion BERNIE: 4 Review of Systems All systems reviewed & are unremarkable except as noted in HPI and below Constitutional Constitutional: Denies chills, Denies fever(s) and Denies weakness Eyes Eyes: Denies loss of vision ENT Ears, Nose, Mouth, and Throat: Denies change in voice Cardiovascular Cardiovascular: Denies chest pain and Denies dyspnea Respiratory Respiratory: Denies cough and Denies dyspnea Gastrointestinal Gastrointestinal: Denies abdominal pain, Denies nausea and Denies vomiting Musculoskeletal Musculoskeletal: Denies joint swelling Neurologic Neurologic: Denies loss of vision and Denies weakness PFSH All Active Problems (Updated 11/13/21 @ 13:23 by Ulises Osorio MD) Rash (Acute) 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 disrption? discharge? (Cx)(Debridement?) CAD (coronary atherosclerotic disease) (Chronic) s/p CABG, 02/2021 (and SD, 09/2020) .. COVID-19 vaccine dose declined (Acute) Remains nervous about chronic health affects from vaccine (heart disease) .. Claudication of both lower extremities (Acute) ABIs (+) .. Working w/ [facility], 01/2021 Tick bite of back (Acute) COPD (chronic obstructive pulmonary disease) (Chronic) Albuterol PRN. Hx Symbicort, but stopped 01/2021 .. puls ox review STEMI (ST elevation myocardial infarction) (Acute 09/14/20) Atherosclerosis of abdominal aorta (Acute ~09/14/20) with intramural hematoma w/in abd Aorta with intermittent claudication, PAD Transaminitis (Acute 09/14/20) Type 2 diabetes mellitus without complications (Acute 09/14/20) new dx [facility] , AIC 11.9 Medical History Acute coronary syndrome (09/14/20) Surgical History S/P CABG x 2 (03/03/21) with stent placement S/P cardiac cath (09/14/20) [facility] to return for re-vascularization in 3 mos Family History Father Colon cancer Heart disease Brother Cancer stomach CA Mother Heart disease Diabetes Brother , age 63 Lung cancer Social History Smoking/Tobacco Use Status: Former Tobacco Use Tobacco: How many years used: 51 Smoking risk assessment performed?: Yes Alcohol Intake: never Drug use: Never Substance use type: does not use Do you feel safe at home: Yes Do you feel safe in your relationship?: Yes Exam Const General: no acute distress Orientation: alert HENMT Head: normal to inspection Ears: external ears normal General nose exam: external nose normal Mouth: moist mucous membranes Eyes General: appearance normal, both eyes and all related structures Neck Neck: normal visual inspection Resp Effort & Inspection: normal respiratory effort and able to speak in complete sentences Cardio Rate: regular rate Skin General skin exam: turgor normal Neuro General: patient alert and patient oriented x3 Extrem General: normal to inspection Psych Mental Status: mental status grossly normal Course Vital Signs Vital signs: Vital Signs Temperature 36.6 C 11/13/21 13:13 Pulse 62 11/13/21 13:13 Respiratory Rate 18 11/13/21 13:13 Blood Pressure 135/57 L 11/13/21 13:13 Pulse Oximetry 98 11/13/21 13:13 Temperature 36.6 C 11/13/21 13:13 Temperature Source Tympanic 11/13/21 13:13 Pulse 62 11/13/21 13:13 Respiratory Rate 18 11/13/21 13:13 Respiratory Effort 11/13/21 13:15 Blood Pressure 135/57 L 11/13/21 13:13 Blood Pressure Position Supine 11/13/21 13:13 Pulse Oximetry 98 11/13/21 13:13 Oxygen Delivery Method Room Air 11/13/21 13:13 Oxygen Flow Rate 0 11/13/21 13:13 Pain Level 0 11/13/21 13:13
[2021-11-13] MEDS: predniSONE 20 MG TAB 60 MG PO (13:28)
== END 2021-11-13 14:10 | disposition home or self-care (01) ==
PROVIDERS: Emergency Provider Emergency Medicine; PCP Student in an Organized Health Care Education/Training Program
DX: R21 Rash and other nonspecific skin eruption (principal)
CPT/HCPCS: 99283; J7512

== ENCOUNTER → 2021-11-23 13:05 | Outpatient (BNVA) | payer MEDICARE, MEDICAID, SELFPAY | PROVIDERS: PCP Student in an Organized Health Care Education/Training Program; Referring Provider Student in an Organized Health Care Education/Training Program; Visit Provider Internal Medicine Cardiovascular Disease | DX: I73.9 Peripheral vascular disease, unspecified (principal); I25.10 Atherosclerotic heart disease of native coronary artery without angina pectoris | CPT/HCPCS: 99214; 99213 ==

== ENCOUNTER 2021-12-07 13:00 | Outpatient (RCR) | payer MEDICARE, MEDICAID, SELFPAY | END 2021-12-10 23:59 | disposition home or self-care (01) | LOC: CR 13:00 | PROVIDERS: PCP Student in an Organized Health Care Education/Training Program; Visit Provider Internal Medicine Cardiovascular Disease | DX: Z51.89 Encounter for other specified aftercare (principal); I25.2 Old myocardial infarction; Z95.5 Presence of coronary angioplasty implant and graft; Z95.1 Presence of aortocoronary bypass graft | CPT/HCPCS: S9472 ==

== ENCOUNTER 2022-01-08 13:00 | Outpatient (RCR) | payer MEDICARE, MEDICAID, SELFPAY | END 2022-01-10 23:59 | disposition home or self-care (01) | LOC: CR 13:00 | PROVIDERS: PCP Student in an Organized Health Care Education/Training Program; Referring Provider Student in an Organized Health Care Education/Training Program; Visit Provider Internal Medicine Cardiovascular Disease | DX: Z51.89 Encounter for other specified aftercare (principal); I25.2 Old myocardial infarction; Z95.5 Presence of coronary angioplasty implant and graft; Z95.1 Presence of aortocoronary bypass graft | CPT/HCPCS: S9472 ==

== ENCOUNTER 2022-01-15 13:00 | Outpatient (RCR) | payer MEDICARE, MEDICAID, SELFPAY | END 2022-02-10 23:59 | disposition home or self-care (01) | LOC: CR 13:00 | PROVIDERS: PCP Student in an Organized Health Care Education/Training Program; Referring Provider Student in an Organized Health Care Education/Training Program; Visit Provider Internal Medicine Cardiovascular Disease | DX: Z51.89 Encounter for other specified aftercare (principal); I25.2 Old myocardial infarction; Z95.5 Presence of coronary angioplasty implant and graft; Z95.1 Presence of aortocoronary bypass graft | CPT/HCPCS: S9472 ==

== ENCOUNTER → 2022-06-21 10:30 | Outpatient (BNVA) | payer MEDICARE, MEDICAID, SELFPAY | PROVIDERS: PCP Student in an Organized Health Care Education/Training Program; Referring Provider Student in an Organized Health Care Education/Training Program; Visit Provider Internal Medicine Cardiovascular Disease | DX: I25.10 Atherosclerotic heart disease of native coronary artery without angina pectoris (principal); I73.9 Peripheral vascular disease, unspecified; Z95.828 Presence of other vascular implants and grafts | CPT/HCPCS: 99214; 99213 ==

== ENCOUNTER 2022-06-22 03:48 | Outpatient (CLI) | payer MEDICARE, MEDICAID, SELFPAY ==
[2022-06-22 10:12] LABS: HCT 39.9 % (36.0-46.0); HGB 12.3 g/dL (11.2-15.7); MCH 26.2 pg (27.0-33.0); MCHC 30.8 % (32.0-36.0); MCV 85 fL (80-95); MPV 11.8 fL (8.0-11.0); Platelet Count 319 10^3/uL (130-400); RDW 15.7 % (11.7-14.6); RDW-SD 47.9 fL; WBC 9.83 10^3/uL (4.4-10.8)
[2022-06-22 10:50] LABS: Anion Gap 9.3 mmol/L (3-11); BUN 23 mg/dL (7-18); CO2 26.7 mmol/L (21.0-32.0); CREATININE 1.1 mg/dL (0.55-1.02); Calcium 9.3 mg/dL (8.5-10.1); Calculated LDL 100 mg/dL (<100); Chloride 102 mmol/L (98-107); Cholesterol 192 mg/dL (<200); Estimated GFR 54.73 (mL/min/1.73m2); Glucose 115 mg/dL (74-106); HDL Cholesterol 55 mg/dL (40-60); Potassium 4.7 mmol/L (3.5-5.1); Sodium 138 mmol/L (136-145); TSH (W/Ref FT4) 1.47 uIU/mL (0.36-3.74); Triglyceride 186 mg/dL (<150)
== END 2022-06-22 03:49 | disposition home or self-care (01) ==
LOC: LBO 03:48
PROVIDERS: PCP Student in an Organized Health Care Education/Training Program; Visit Provider Student in an Organized Health Care Education/Training Program
DX: Z86.2 Personal history of diseases of the blood and blood-forming organs and certain disorders involving the immune mechanism (principal); Z95.828 Presence of other vascular implants and grafts; I25.10 Atherosclerotic heart disease of native coronary artery without angina pectoris; E11.9 Type 2 diabetes mellitus without complications; E87.8 Other disorders of electrolyte and fluid balance, not elsewhere classified; F32.A Depression, unspecified
CPT/HCPCS: 36415; 80048; 80061; 85027; 84443

== ENCOUNTER 2022-12-16 09:14 | Outpatient (CLI) | payer MEDICARE, MEDICAID, SELFPAY | END 2022-12-16 09:15 | disposition home or self-care (01) | LOC: DI.CARD 09:15 | PROVIDERS: PCP Student in an Organized Health Care Education/Training Program; Visit Provider Internal Medicine Cardiovascular Disease | DX: I25.10 Atherosclerotic heart disease of native coronary artery without angina pectoris (principal) | CPT/HCPCS: 93010 ==

== ENCOUNTER → 2022-12-20 11:03 | Outpatient (BNVA) | payer MEDICARE, MEDICAID, SELFPAY | PROVIDERS: PCP Student in an Organized Health Care Education/Training Program; Referring Provider Student in an Organized Health Care Education/Training Program; Visit Provider Internal Medicine Cardiovascular Disease | DX: E11.9 Type 2 diabetes mellitus without complications (principal); I25.10 Atherosclerotic heart disease of native coronary artery without angina pectoris; I73.9 Peripheral vascular disease, unspecified | CPT/HCPCS: 99214 ==

== ENCOUNTER 2023-02-22 02:41 | Outpatient (CLI) | payer MEDICARE, MEDICAID, SELFPAY ==
[2023-02-22 10:40] LABS: HCT 39.9 % (36.0-46.0); HGB 12.8 g/dL (11.2-15.7); MCH 27.8 pg (27.0-33.0); MCHC 32.1 % (32.0-36.0); MCV 87 fL (80-95); MPV 11.6 fL (8.0-11.0); Platelet Count 255 10^3/uL (130-400); RBC 4.61 10^6/uL (3.93-5.22); RDW 14.4 % (11.7-14.6); RDW-SD 45.2 fL; WBC 9.18 10^3/uL (4.4-10.8)
[2023-02-22 10:59] LABS: Hemoglobin A1C 6.6 % (<5.7)
[2023-02-22 11:16] LABS: ALT 27 U/L (14-59); AST 16 U/L (15-37); Albumin 4.1 g/dL (3.4-5.0); Alkaline Phosphatase 115 U/L (46-116); Anion Gap 10.3 mmol/L (3-11); BUN 21 mg/dL (7-18); Bilirubin, Total 0.8 mg/dL (0.2-1.0); CO2 26.7 mmol/L (21.0-32.0); CREATININE 1.2 mg/dL (0.55-1.02); Calcium 9.4 mg/dL (8.5-10.1); Calculated LDL 83 mg/dL (<100); Chloride 100 mmol/L (98-107); Cholesterol 196 mg/dL (<200); Estimated GFR 49.31 (mL/min/1.73m2); Glucose 175 mg/dL (74-106); HDL Cholesterol 49 mg/dL (40-60); Potassium 4.2 mmol/L (3.5-5.1); Sodium 137 mmol/L (136-145); Total Protein 7.8 g/dL (6.4-8.2); Triglyceride 320 mg/dL (<150)
== END 2023-02-22 02:42 | disposition home or self-care (01) ==
LOC: LBO 02:42
PROVIDERS: PCP Student in an Organized Health Care Education/Training Program; Referring Provider Student in an Organized Health Care Education/Training Program; Visit Provider Student in an Organized Health Care Education/Training Program
DX: I25.10 Atherosclerotic heart disease of native coronary artery without angina pectoris (principal); Z13.220 Encounter for screening for lipoid disorders; E11.9 Type 2 diabetes mellitus without complications; Z86.2 Personal history of diseases of the blood and blood-forming organs and certain disorders involving the immune mechanism
CPT/HCPCS: 36415; 80053; 80061; 85027; 83036

== ENCOUNTER 2023-06-22 04:25 | Outpatient (CLI) | payer MEDICARE, MEDICAID, SELFPAY ==
[2023-06-22 09:39] LABS: HGB 12.5 g/dL (11.2-15.7)
[2023-06-22 10:06] LABS: ALT 28 U/L (14-59); AST 18 U/L (15-37); Albumin 3.8 g/dL (3.4-5.0); Alkaline Phosphatase 95 U/L (46-116); Anion Gap 6.9 mmol/L (3-11); BUN 18 mg/dL (7-18); Bilirubin, Total 0.7 mg/dL (0.2-1.0); CO2 27.1 mmol/L (21.0-32.0); Calcium 9.3 mg/dL (8.5-10.1); Calculated LDL 73 mg/dL (<100); Chloride 105 mmol/L (98-107); Cholesterol 155 mg/dL (<200); Estimated GFR 60.98 (mL/min/1.73m2); Glucose 115 mg/dL (74-106); HDL Cholesterol 51 mg/dL (40-60); Potassium 4.8 mmol/L (3.5-5.1); Sodium 139 mmol/L (136-145); TSH (W/Ref FT4) 1.45 uIU/mL (0.36-3.74); Total Protein 7.3 g/dL (6.4-8.2); Triglyceride 155 mg/dL (<150)
[2023-06-22 10:23] LABS: Hemoglobin A1C 6.8 % (<5.7)
[2023-06-22 11:06] LABS: Vitamin D 25 Total 13.2 ng/mL (30-100)
== END 2023-06-22 04:26 | disposition home or self-care (01) ==
LOC: LBO 04:25
PROVIDERS: Absent Provider Student in an Organized Health Care Education/Training Program; PCP Student in an Organized Health Care Education/Training Program; Visit Provider Student in an Organized Health Care Education/Training Program
DX: Z13.220 Encounter for screening for lipoid disorders; E11.9 Type 2 diabetes mellitus without complications; I25.10 Atherosclerotic heart disease of native coronary artery without angina pectoris; K21.9 Gastro-esophageal reflux disease without esophagitis; Z86.2 Personal history of diseases of the blood and blood-forming organs and certain disorders involving the immune mechanism; Z91.89 Other specified personal risk factors, not elsewhere classified
CPT/HCPCS: 36415; 80053; 80061; 82306; 83036; 84443; 85018

== ENCOUNTER 2023-10-10 05:44 | Outpatient (CLI) | payer MEDICARE, MEDICAID, SELFPAY ==
[2023-10-10 13:22] LABS: Vitamin D 25 Total 50.5 ng/mL (30-100)
[2023-10-12 05:29] LABS: Ascorbic Acid (Vit C), Plasma 0.8 mg/dL (0.4 - 2.0)
== END 2023-10-10 05:45 | disposition home or self-care (01) ==
LOC: LBO 05:44
PROVIDERS: Absent Provider Student in an Organized Health Care Education/Training Program; PCP Student in an Organized Health Care Education/Training Program; Visit Provider Student in an Organized Health Care Education/Training Program
DX: R79.89 Other specified abnormal findings of blood chemistry (principal); Z78.9 Other specified health status
CPT/HCPCS: 36415; 82306; 82180

== ENCOUNTER → 2023-11-30 02:14 | Outpatient (CLI) | payer MEDICARE, MEDICAID, SELFPAY ==
--- NOTE | 2023-11-30 09:15 | DI.CTLCSR_ITS ---
Exam(s) CT CHEST LUNG CANCER SCREEN EXAM: CT CHEST LUNG CANCER SCREEN CLINICAL HISTORY: Screening for lung cancer, FORMER SMOKER, Z87.891 TECHNIQUE: Imaging Protocol: Axial computed tomography images with coronal and sagittal reformatted images were created and reviewed. Low dose screening protocol. COMPARISON: CT CT THORAX ABDOMEN CTA from 09/14/2020 FINDINGS: Tracheobronchial tree: No bronchiectasis or mucus plugging. Mediastinum and Melissa: No dominant adenopathy or fluid collection. Pulmonary parenchyma: No consolidation or dominant measurable mass. Mild emphysematous changes. Lung Nodules: Scattered tiny granulomata. Pleura: No effusion. No pneumothorax. Heart: The heart is mildly dilated. Lad stent. Aorta: Thoracic aorta non-dilated.Mild atherosclerotic changes. Upper abdomen: Large cyst upper pole left kidney noted on prior exam. Bones: Sternal wires. Soft Tissues: Unremarkable. IMPRESSION: No suspicious pulmonary nodules. Lung RADS Cat 1 - Negative: No nodules and definitely benign nodules Lung-RADS 1.0 CATEGORIES: Category 0 - Prior chest CT exam(s) being located for comparison. Category 1 - Annual screening in 12 months. No nodules or definitely benign nodules. Category 2 - Annual screening in 12 months. Benign appearance. Nodules with low likelihood of becomin g active cancer. Category 3 - 6-month follow-up. Probably benign. Short-term follow-up suggested. Nodules with low lik elihood of becoming active cancer. Category 4A - 3-month follow-up and CT/PET if >8 mm in size. Suspicious finding. Findings which requi re additional testing. Category 4B - Findings which require additional testing and tissue sampling. Category 4X - Category 3 or 4 nodules with additional features or imaging findings that increases the suspicion of malignancy. Modifier S- Potentially clinically significant findings (non lung cancer) RADIATION DOSE DELIVERED: 69.07mGy.cm Total DLP DATA REPOSITORY: All CT scans at this facility are submitted to the National Radiology Data Registry (NRDR) Dose Index Registry (DIR) with the [employer] (ACR). RADIATION OPTIMIZATION: All CT scans at this facility use at least one of these dose optimization te chniques: automated exposure control; mA and/or kV adjustment per patient size (includes targeted exa ms where dose is matched to clinical indication); or iterative reconstruction.
--- NOTE | 2023-11-30 09:15 | DI.MAMMO_ITS ---
Exam(s) MAMMO SCREENING EXAM: MAMMO SCREENING CLINICAL HISTORY: screening, Z12.39 TECHNIQUE: Mammograms were interpreted according to the usual protocol including computer analysis w [employer] CAD system, tomosynthesis and C-view imaging. COMPARISON: No exams were available for comparison. Patient states last mammogram was over 20 years ago. FINDINGS: The breasts are composed of scattered fibroglandular densities, Breast Density category B. No suspicious masses or suspicious microcalcifications are seen. No skin thickening or abnormal axillary lymph nodes are seen. IMPRESSION: BI-RADS Category 1, Negative mammogram Yearly screening mammography is recommended. Breast Density - Category B, scattered fibroglandular densities. A negative radiographic report should not delay biopsy if a dominant or clinically suspicious mass is present. Up to ten percent of cancers are not identified on mammography. A negative report may reinforce clinical impression. Adenosis and dense breasts may obscure an underlying neoplasm. False positive reports average 6 to 10%. Patient will receive a letter notifying them of these results.
== END ==
PROVIDERS: PCP Student in an Organized Health Care Education/Training Program; Visit Provider Student in an Organized Health Care Education/Training Program
DX: Z12.31 Encounter for screening mammogram for malignant neoplasm of breast (principal); Z87.891 Personal history of nicotine dependence; Z12.2 Encounter for screening for malignant neoplasm of respiratory organs
CPT/HCPCS: 71271; 77063; 77067

== ENCOUNTER 2023-12-26 08:38 | Outpatient (CLI) | payer MEDICARE, MEDICAID, SELFPAY ==
--- NOTE | 2023-12-26 08:30 | RT.EKG_ITS ---
APPROVED REPORT Exam: Resting ECG Reason for Exam: CAD Patient Location: O HR:53 bpm ECG Measurements Heart Rate 53 AXIS VT 158 P -10 QRSd 93 QRS -7 QT 427 T 40 QTc 401 Conclusion Sinus arrhythmia...V-rate 41- 60, variation>10% Low voltage, precordial leads...precordial leads <1.0mV Poor R wave progression possible old anterior infarct
== END 2023-12-26 08:39 | disposition home or self-care (01) ==
LOC: DI.CARD 08:39
PROVIDERS: PCP Student in an Organized Health Care Education/Training Program; Visit Provider Internal Medicine Cardiovascular Disease
DX: I25.10 Atherosclerotic heart disease of native coronary artery without angina pectoris (principal); I49.8 Other specified cardiac arrhythmias; I25.810 Atherosclerosis of coronary artery bypass graft(s) without angina pectoris; I73.9 Peripheral vascular disease, unspecified
CPT/HCPCS: 93010

== ENCOUNTER → 2023-12-26 10:38 | Outpatient (BNVA) | payer MEDICARE, MEDICAID, SELFPAY | PROVIDERS: PCP Student in an Organized Health Care Education/Training Program; Visit Provider Internal Medicine Cardiovascular Disease | DX: I25.810 Atherosclerosis of coronary artery bypass graft(s) without angina pectoris (principal); R94.31 Abnormal electrocardiogram [ECG] [EKG]; I73.9 Peripheral vascular disease, unspecified; I25.10 Atherosclerotic heart disease of native coronary artery without angina pectoris | CPT/HCPCS: 93005; 99213 ==

== ENCOUNTER 2024-04-10 03:44 | Outpatient (CLI) | payer MEDICARE, MEDICAID, SELFPAY ==
--- NOTE | 2024-04-10 13:24 | W.NUTRFU ---
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 Pat states her hospitalization 3 years ago was bad experience as this is the same time she found out she had diabetes and also lost her dentures and currently still putting meals together with consideration of texture/ability to chew. But on the positive, it was also the time she had her last cigarette. No etoh use [id number]. Meds:Vitamin C, ZnO, atorvastatin, vitamin D3, dapagliflozin, insulin glargine (15u HS), 500mg Metformin ER BID, metopralol, lisinopril, ezetimibe, dexlansaprazole. A1C was 7.4% 04/05/24 - Pat states current goal is <7% She tries to walk often but many times has to manage pain from PAD. She checks glucose at fasting and HS currently. Asked about usual diet and recall: She uses sweet and low instead of sugar in coffee. She might have a diet coke/pepsi verry occasionally. She does have a hard time drinking copious amounts of water and indicates about <16oz per day of free water intake. She is up early at 4:30am and will have her coffee - uses creamer with 5g sugar per serving (she does read labels for things like sodium and sugar). She has breakfast 7-7:30 and gives pkg of oatmeal as example. She seldom eats lunch - might go out for a salad when her neighbor asks her to go out. She states supper is off and on and might note eat, have a snack later. She goes to bed ~9pm - her aroldo (former nurse) administers her insulin for her due to needle phobia. We looked at her estimated energy needs: 1612kcals ([id number]) - suggested 1400kcals for slow weight reduction as BMI currently 30.7, 70-102g protein (20-30%kcals), 140g CHO (40% of kcals) and 49g fat (30% of kcals) We reviewed carb vs non-carb food choices and that every serving of carbs is 15grams of carbs. We discussed planning for no more than 9-10servings per day. We lookd at food labels during our discussion as she was confused and thought nutrition info was for entire package. We discussed healthy carb choices and lean protein. Assessment of her diet: low fiber and protein intake due to skipping meals and choosing single CHO choices at meals (Such as oatmeal without any [id number] items paired with it. Pat with start applying some of the goal we discussed today such as keeping reliable eating schedule, increasing lean protein intake and keeping total carbs ~140g most days and spread throughout the day. She has my contact infomation should she desire follow up or has any immediate questions she would like answered. If glucose control continues to deteriorate would consider addition of [id number] for help with glucose control and kidney protection. Time Spent in Nutritional Counseling and Treatment: 50min
== END 2024-04-10 03:45 | disposition home or self-care (01) ==
LOC: DS 03:44
PROVIDERS: PCP Student in an Organized Health Care Education/Training Program; Visit Provider Dietitian, Registered
DX: E11.9 Type 2 diabetes mellitus without complications (principal)
CPT/HCPCS: 00123; 97802

== ENCOUNTER 2024-04-13 02:49 | Outpatient (CLI) | payer MEDICARE, MEDICAID, SELFPAY ==
[2024-04-13 10:18] LABS: HGB 11.6 g/dL (11.2-15.7)
[2024-04-13 11:22] LABS: ALT 23 U/L (14-59); AST 14 U/L (15-37); Albumin 3.7 g/dL (3.4-5.0); Alkaline Phosphatase 95 U/L (46-116); Anion Gap 8.5 mmol/L (3-11); BUN 21 mg/dL (7-18); Bilirubin, Total 0.59 mg/dL (0.2-1.0); CO2 28.5 mmol/L (21.0-32.0); CREATININE 1.1 mg/dL (0.55-1.02); Calcium 9.1 mg/dL (8.5-10.1); Calculated LDL 64 mg/dL (<100); Chloride 107 mmol/L (98-107); Cholesterol 152 mg/dL (<200); Estimated GFR 54.39 (mL/min/1.73m2); Glucose 116 mg/dL (74-106); HDL Cholesterol 61 mg/dL (40-60); Potassium 4.4 mmol/L (3.5-5.1); Sodium 144 mmol/L (136-145); Triglyceride 136 mg/dL (<150)
== END 2024-04-13 02:50 | disposition home or self-care (01) ==
LOC: LBO 02:49
PROVIDERS: PCP Student in an Organized Health Care Education/Training Program; Referring Provider Student in an Organized Health Care Education/Training Program; Visit Provider Student in an Organized Health Care Education/Training Program
DX: E46 Unspecified protein-calorie malnutrition (principal); Z86.2 Personal history of diseases of the blood and blood-forming organs and certain disorders involving the immune mechanism; E11.9 Type 2 diabetes mellitus without complications; Z79.4 Long term (current) use of insulin; K21.9 Gastro-esophageal reflux disease without esophagitis; Z13.220 Encounter for screening for lipoid disorders
CPT/HCPCS: 36415; 80053; 80061; 85018

== ENCOUNTER 2024-07-13 00:36 | Outpatient (CLI) | payer MEDICARE, MEDICAID, SELFPAY ==
[2024-07-13 09:58] LABS: Abs Immature Grans 0.03 10^3/uL (0.0-0.06); Absolute Basophil Count 0.06 10^3/uL (0.0-0.2); Absolute Eosinophil Count 0.33 10^3/uL (0.0-0.7); Absolute Lymphocyte Count 1.57 10^3/uL (1.2-3.4); Absolute Monocyte Count 0.55 10^3/uL (0.1-0.8); Absolute Neutrophil Count 5.48 10^3/uL (1.2-6.7); Basophils % 0.7 %; Eosinophils % 4.1 %; HCT 38.8 % (36.0-46.0); Immature Grans % 0.4 %; Lymphocytes % 19.6 %; MCH 28.2 pg (27.0-33.0); MCHC 30.9 % (32.0-36.0); MCV 91 fL (80-95); Monocytes % 6.9 %; Neutrophils % 68.3 %; Platelet Count 226 10^3/uL (130-400); RBC 4.26 10^6/uL (3.93-5.22); RDW 14.6 % (11.7-14.6); RDW-SD 48.8 fL; WBC 8.02 10^3/uL (4.4-10.8)
[2024-07-13 10:06] LABS: Hemoglobin A1C 7.1 % (<5.7)
[2024-07-13 10:12] LABS: Anion Gap 9.4 mmol/L (3-11); BUN 25 mg/dL (7-18); CO2 28.6 mmol/L (21.0-32.0); CREATININE 1.2 mg/dL (0.55-1.02); Calcium 9.8 mg/dL (8.5-10.1); Chloride 108 mmol/L (98-107); Glucose 186 mg/dL (74-106); Potassium 4.3 mmol/L (3.5-5.1); Sodium 146 mmol/L (136-145)
[2024-07-13 10:35] LABS: Iron 51 ug/dL (50-170); Total Iron Binding Capacity 320 ug/dL (250-450); Transferrin Sat 16 % (15-50)
== END 2024-07-13 00:37 | disposition home or self-care (01) ==
PROVIDERS: PCP Student in an Organized Health Care Education/Training Program; Visit Provider Student in an Organized Health Care Education/Training Program
DX: R73.09 Other abnormal glucose (principal); D64.9 Anemia, unspecified; N18.9 Chronic kidney disease, unspecified; I10 Essential (primary) hypertension
CPT/HCPCS: 36415; 80048; 83036; 83540; 83550; 85025

== ENCOUNTER → 2024-12-24 09:35 | Outpatient (BNVA) | payer MEDICARE, MEDICAID, SELFPAY | PROVIDERS: PCP Family Medicine; Visit Provider Registered Nurse | DX: I25.810 Atherosclerosis of coronary artery bypass graft(s) without angina pectoris (principal); I73.89 Other specified peripheral vascular diseases; Z95.1 Presence of aortocoronary bypass graft; Z79.02 Long term (current) use of antithrombotics/antiplatelets; Z79.811 Long term (current) use of aromatase inhibitors | CPT/HCPCS: 99214 ==

== ENCOUNTER 2024-12-25 02:40 | Outpatient (CLI) | payer MEDICARE, MEDICAID, SELFPAY ==
--- NOTE | 2024-12-25 07:15 | DI.RAD_ITS ---
Exam(s) XR FOOT RT COMPLETE EXAM: XR FOOT RT COMPLETE CLINICAL HISTORY: Foot pain,RT,M79.671. TECHNIQUE: 2D digital imaging was performed of the right foot. Three images were obtained. AP, oblique and lateral views were obtained. COMPARISON: No exams were available for comparison FINDINGS: BONES: No acute fracture is present. No bony destructive lesion is seen. There is a small enthesophyte at the posterior calcaneus. There is a small plantar calcaneal spur. JOINTS: No dislocation present. The joint spaces are well maintained. SOFT TISSUE: Soft tissue calcifications are adjacent to the plantar calcaneal spur. IMPRESSION: Calcaneal spurs. DATA REPOSITORY: RADIATION DOSE DELIVERED:
--- NOTE | 2024-12-25 07:15 | DI.RAD_ITS ---
Exam(s) XR FOOT LT COMPLETE EXAM: XR FOOT LT COMPLETE CLINICAL HISTORY: foot pain,LT M79.672. TECHNIQUE: 2D digital imaging was performed of the left foot. Three images were obtained. AP, oblique and lateral views were obtained. COMPARISON: No exams were available for comparison FINDINGS: BONES: No acute fracture is present. No bony destructive lesion is seen. There is a bipartite medial sesamoid. There is a small plantar calcaneal spur and adjacent soft tissue calcification. JOINTS: No dislocation present. The joint spaces are well maintained. SOFT TISSUE: Normal. IMPRESSION: Calcaneal spur. DATA REPOSITORY: RADIATION DOSE DELIVERED:
== END 2024-12-25 03:00 ==
LOC: DI 02:41
PROVIDERS: PCP Family Medicine; Visit Provider Podiatrist
DX: M77.32 Calcaneal spur, left foot (principal); M77.31 Calcaneal spur, right foot; M72.2 Plantar fascial fibromatosis; E11.51 Type 2 diabetes mellitus with diabetic peripheral angiopathy without gangrene; Z87.891 Personal history of nicotine dependence
CPT/HCPCS: 99213; 73630

== ENCOUNTER 2025-01-11 01:22 | Outpatient (CLI) | payer MEDICARE, MEDICAID, SELFPAY ==
--- NOTE | 2025-01-11 08:45 | DI.US_ITS ---
APPROVED REPORT EXAM: Comprehensive 2D, Doppler, and color-flow Echocardiogram Patient Location: Out-Patient Surgery Scheduler: Marques Mccray RDCS (AE) Indications: SOB, CAD Other Information Study Quality: Adequate Conclusion Normal left ventricular wall thickness. Top normal chamber size. Ejection fraction is 55%. Septal motion suggests an IVCD Normal right ventricular size and function Both atria are normal in size The aortic valve is mildly sclerotic and trileaflet without stenosis or regurgitation Structurally normal mitral valve with moderate to severe eccentric regurgitation Mild tricuspid regurgitation. Estimated right ventricular systolic pressure is 42 mmHg Wall motion Left Ventricle The left ventricle is normal size. The left ventricular systolic function is normal. The left ventricular ejection fraction is within the normal range. There is normal left ventricular wall thickness. Septal motion suggests an IVCD There is no ventricular septal defect visualized. LVEF is 55%. Right Ventricle The right ventricle is normal size. The right ventricular systolic function is normal. Atria The left atrium size is normal. The right atrium size is normal. The interatrial septum is intact with no evidence for an atrial septal defect. Aortic Valve The aortic valve is mildly sclerotic. There is no aortic valvular stenosis. No aortic regurgitation is present. Mitral Valve The mitral valve is normal in structure. No evidence of mitral valve stenosis. Moderate to severe mitral regurgitation Tricuspid Valve The tricuspid valve is normal in structure. There is no tricuspid valve stenosis. Mild tricuspid regurgitation. The RVSP is 42.0 mmHg. Pulmonic Valve The pulmonary valve is normal in structure. There is no pulmonic valvular stenosis. Mild to moderate pulmonic regurgitation. Great Vessels The aortic root is normal in size. The ascending aorta is normal in size. Aortic arch is normal in caliber. IVC is normal in size and collapses >50% with inspiration. Pericardium There is no pericardial effusion. 2D Dimensions IVSD d PLAX 0.86 cm F: 0.6-1.0 Ao Root d 2.91 cm F: 2.7 - 3.3 LVPW d PLAX 0.76 cm F: 0.6 - 1.0 Ao Asc Diam d 3.08 cm F: 2.3 - 3.1 LVID d PLAX 5.41 cm F: 3.8 - 5.2 LVDs 4.01 cm F: 2.2 - 3.5 LV EF Teichholz 50.4 % FS 25.92 % LV EDV (Teich) 141.9 mL LV ESV (Teich) 70.3 mL Stroke Vol Index (Teich) 40.00 M-Mode TAPSE 1.79 cm (M/F) >1.7 Auto EF LV EDV A4C 114.0 mL LV EDV A2C 86.4 mL LV EDV BP 100.3 mL LV ESV A4C 61.6 mL LV ESV A2C 43.7 mL LV ESV BP 52.2 mL LVEF(%) A4C 45.9 % LVEF(%) A2C 49.5 % LVEF(%) BP 48.0 % LV SV A4C 52.3 ml LV SV A2C 42.8 ml LV SV BP 48.1 ml LV CO A4C 2.5 L/min LV CO A2C 1.9 L/min LV CO BP 2.2 L/min HR A4C 48.44 BPM HR A2C 43.27 BPM LV EDV Index (BP) LA Volume LA Length A4C 4.6 cm LA Length A2C 5.4 cm LA Area A4C s 11.63 cm2 LA Area A2C s 15.03 cm2 LA Vol A4C A-L 24.90 mL LA Vol A2C A-L 35.73 mL LA Vol Biplane A-L 32.2 mL LA Vol/BSA A4C A-L LA Vol/BSA A2C A-L LA Vol/BSA BP A-L 18.0 mL/m2 LA Vol A4C MOD 22.5 mL LA Vol A2C MOD 34.7 mL LA Vol BP MOD 29.6 mL RA Volume RA Area A4C 8.2 cm2 RA ESV A4C (A-L) 14.0mL RA Vol/BSA A4C A-L RA Length A4C 4.1 cm RA ESV A4C (MOD) 13.9mL LV Diastology MV E' medial 0.049 (>0.07 m/s) MV E Vmax 1.53 (0.4-1.3 m/s) MV E/E' MED 31.14 (<14) MV A Vmax 1.20 (0.4-1.3 m/s) MV E' lateral 0.078 (>0.1 m/s) E/A Ratio 1.3 MV E/E' LAT 19.55 (<14) MV E' Average 0.064 m/s MV E/E'(average) 24.02 Aortic Valve AoV Vmax 2.03 m/s LVOT Vmax 1.01 m/s AoV Peak Grad 16.4 mmHg LVOT Peak Grad 4.1 mmHg AoV Area (Vmax) 1.56 cm2 LVOT VTI 0.295 m AoV VTI 0.534 m LVOT Mean Grad 2.6 mmHg AoV Mean Oral. 1.36 m/s LVOT SV 91.76 mL AoV Mean Grad 8.4 mmHg LVOT Diam s 1.95 cm AoV Area (VTI) 1.72 cm2 AV Regurg Peak Gr. 16.42 mmHg Velocity Ratio 0.50 Mitral Valve MV DT 250 (160-240 msec) MV Vmax TIPS 1.48 m/s MV Mean Grad 3.7 (<2mmHg) MV VTI 0.494 m Pulmonary Valve PV Vmax 1.06 (0.5-1.5 m/s) RVOT Vmax 0.59 m/s PV Peak Grad 4.5 mmHg RVOT Peak Gr. 1.4 mmHg PV Mean Oral 0.80 m/s RVOT VTI 0.134 m PV Mean Grad 2.9 mmHg RVOT Mean Gr. 0.7 mmHg Tricuspid Valve RA Pressure 3.00 mmHg TR Vmax 3.13 m/s TR Peak Grad 39.0 mmHg RVSP (TR) 42.0 mmHg
== END 2025-01-11 01:42 ==
LOC: DI 01:22
PROVIDERS: PCP Family Medicine; Visit Provider Internal Medicine Cardiovascular Disease
DX: I25.10 Atherosclerotic heart disease of native coronary artery without angina pectoris (principal)
CPT/HCPCS: 93306

== ENCOUNTER → 2025-01-23 14:35 | Outpatient (BNVA) | payer MEDICARE, MEDICAID, SELFPAY | PROVIDERS: PCP Family Medicine; Referring Provider Family Medicine; Visit Provider Registered Nurse | DX: I25.810 Atherosclerosis of coronary artery bypass graft(s) without angina pectoris (principal); I34.0 Nonrheumatic mitral (valve) insufficiency; I73.89 Other specified peripheral vascular diseases; Z95.5 Presence of coronary angioplasty implant and graft; Z95.1 Presence of aortocoronary bypass graft; Z79.02 Long term (current) use of antithrombotics/antiplatelets; Z79.811 Long term (current) use of aromatase inhibitors | CPT/HCPCS: 99214 ==

== ENCOUNTER → 2025-03-05 10:02 | Outpatient (BNVA) | payer MEDICARE, MEDICAID, SELFPAY | PROVIDERS: PCP Family Medicine; Referring Provider Family Medicine; Visit Provider Podiatrist | DX: M72.2 Plantar fascial fibromatosis (principal); M79.671 Pain in right foot; M79.672 Pain in left foot; I73.89 Other specified peripheral vascular diseases; S93.401A Sprain of unspecified ligament of right ankle, initial encounter; X58.XXXA Exposure to other specified factors, initial encounter; Z87.891 Personal history of nicotine dependence | CPT/HCPCS: 99213 ==

== ENCOUNTER 2025-03-07 04:12 | Outpatient (CLI) | payer MEDICARE, MEDICAID, SELFPAY ==
--- NOTE | 2025-03-07 06:30 | DI.RAD_ITS ---
Exam(s) XR ANKLE RT COMPLETE EXAM: XR ANKLE RT COMPLETE CLINICAL HISTORY: Right ankle sprain,m25.571,s93.401a. TECHNIQUE: 2D digital imaging was performed. Three views. COMPARISON: CR XR ANKLE LT COMPLETE from 03/07/2025 FINDINGS: BONES: No acute fracture is present. No bony destructive lesion is seen. Tiny enthesophyte at the Achilles insertion. Moderate sized plantar calcaneal spur. JOINTS: The ankle mortise is normally aligned. No joint space narrowing. Minimal spurring at the medial malleolus. SOFT TISSUE: Normal. IMPRESSION: Heel spur. DATA REPOSITORY: RADIATION DOSE DELIVERED:
--- NOTE | 2025-03-07 06:30 | DI.RAD_ITS ---
Exam(s) XR ANKLE LT COMPLETE EXAM: XR ANKLE LT COMPLETE CLINICAL HISTORY: Comparison views,pain lt ankle,m25.572 TECHNIQUE: 2D digital imaging was performed. Three views. COMPARISON: No exams were available for comparison FINDINGS: BONES: No acute fracture is present. No bony destructive lesion is seen. Moderate-sized plantar calcaneal spur. Some calcification in the plantar fascia. JOINTS:The ankle mortise is normally aligned. Mild spurring at the medial tibial talar joint which is mildly narrowed. SOFT TISSUE: Normal. IMPRESSION: Heel spur and mild tibiotalar degenerative changes. DATA REPOSITORY: RADIATION DOSE DELIVERED:
== END 2025-03-07 04:32 ==
PROVIDERS: PCP Family Medicine; Visit Provider Podiatrist
DX: M25.572 Pain in left ankle and joints of left foot (principal); M25.571 Pain in right ankle and joints of right foot; M77.32 Calcaneal spur, left foot
CPT/HCPCS: 73610

== ENCOUNTER → 2025-04-16 10:16 | Outpatient (BNVA) | payer MEDICARE, MEDICAID, SELFPAY | PROVIDERS: PCP Family Medicine; Referring Provider Family Medicine; Visit Provider Podiatrist | DX: M25.571 Pain in right ankle and joints of right foot (principal); M79.672 Pain in left foot; M72.2 Plantar fascial fibromatosis; I73.89 Other specified peripheral vascular diseases; E11.42 Type 2 diabetes mellitus with diabetic polyneuropathy; Z79.4 Long term (current) use of insulin; S93.401D Sprain of unspecified ligament of right ankle, subsequent encounter; X50.0XXD Overexertion from strenuous movement or load, subsequent encounter | CPT/HCPCS: 99213 ==